=== PATIENT | female | born 1975 | race Caucasian/White ===

== ENCOUNTER 2018-10-25 13:16 | Emergency (ER) | payer BC ==
[2018-10-25] MEDS ORDERED: Sulfameth/Trimethoprim DS 800-160mg TAB ONE (13:57)
== END 2018-10-25 14:03 | disposition home or self-care (01) ==
LOC: NAV ERS 13:16
DX: L02.211 Cutaneous abscess of abdominal wall (principal); Z71.6 Tobacco abuse counseling; E03.9 Hypothyroidism, unspecified; F17.210 Nicotine dependence, cigarettes, uncomplicated; Z79.899 Other long term (current) drug therapy
CPT/HCPCS: 99406

== ENCOUNTER 2019-03-03 13:06 | Emergency (ER) | payer BC ==
[2019-03-03] MEDS ORDERED: Ketorolac Tromethamine 60 MG/2 ML VIAL ONE (13:42)
== END 2019-03-03 14:05 | disposition home or self-care (01) ==
LOC: NAV ERS 13:06
DX: M54.2 Cervicalgia (principal); E03.9 Hypothyroidism, unspecified; F17.210 Nicotine dependence, cigarettes, uncomplicated; Z79.899 Other long term (current) drug therapy
CPT/HCPCS: 96372; 99283; J1885

== ENCOUNTER 2019-04-01 18:14 | Emergency (ER) | payer BC ==
--- NOTE | 2019-04-01 19:37 | RAD ---
RIGHT MIDDLE FINGER THREE VIEWS: 04/01/19 HISTORY: Right finger injury. FINDINGS: There is joint space narrowing, osteophytosis and subchondral sclerosis at the distal interphalangeal joint. No acute fracture, dislocation, or aggressive osseous erosions. IMPRESSION: Osteoarthritis distal interphalangeal joint. No acute osseous abnormalities are demonstrated. POS: [facility]
== END 2019-04-01 19:08 | disposition home or self-care (01) ==
LOC: NAV ERS 18:14
DX: S63.632A Sprain of interphalangeal joint of right middle finger, initial encounter (principal); E03.9 Hypothyroidism, unspecified; F17.210 Nicotine dependence, cigarettes, uncomplicated; Z79.899 Other long term (current) drug therapy; X58.XXXA Exposure to other specified factors, initial encounter

== ENCOUNTER 2019-05-30 23:13 | Emergency (ER) | payer BC ==
[2019-05-30] MEDS ORDERED: Ketorolac Tromethamine 30 MG/ML VIAL ONE (23:55)
--- NOTE | 2019-05-30 23:59 | RAD ---
5 views of the cervical spine: 05/30/2019 COMPARISON: None HISTORY: Pain FINDINGS: There is anterior discectomy and fusion hardware at the C6-7 level. No evidence for hardwar e failure. No anterolisthesis or retrolisthesis. Frontal imaging demonstrates mid cervical spine uncovertebral osteophyte formation, left greater than right. Open-mouth odontoid view appears unremarkable. IMPRESSION: Postoperative and degenerative change. No acute osseous abnormality.
== END 2019-05-31 00:17 | disposition home or self-care (01) ==
LOC: NAV ERS 23:13
DX: S13.9XXA Sprain of joints and ligaments of unspecified parts of neck, initial encounter (principal); F17.210 Nicotine dependence, cigarettes, uncomplicated; E03.9 Hypothyroidism, unspecified; Z79.899 Other long term (current) drug therapy; V89.2XXA Person injured in unspecified motor-vehicle accident, traffic, initial encounter
CPT/HCPCS: 72040; 96372; J1885

== ENCOUNTER → 2019-11-23 | Emergency (ER) | payer BC ==
--- NOTE | 2019-11-23 18:19 | RAD ---
LEFT FINGER THREE VIEW: 11/23/19 HISTORY: Thumb pain. COMPARISON: None. FINDINGS: There is mild interphalangeal joint space narrowing. No acute fracture or malalignment. Moderate dege nerative disease of the thumb carpometacarpal joint. IMPRESSION: Degenerative changes. No acute osseous abnormality. POS: HOME
== END ==
LOC: NAV ERS 17:21
DX: M19.042 Primary osteoarthritis, left hand (principal); E03.9 Hypothyroidism, unspecified; F17.210 Nicotine dependence, cigarettes, uncomplicated; Z79.899 Other long term (current) drug therapy
CPT/HCPCS: 29125

== ENCOUNTER 2020-04-04 13:22 | Emergency (ER) | payer BC ==
[2020-04-04] MEDS ORDERED: Cyclobenzaprine 10 MG TAB ONE ×2 (13:53→13:56)
== END 2020-04-04 14:04 | disposition home or self-care (01) ==
LOC: NAV ERS 13:22
DX: M43.6 Torticollis (principal); F17.210 Nicotine dependence, cigarettes, uncomplicated; E03.9 Hypothyroidism, unspecified; Z79.899 Other long term (current) drug therapy
CPT/HCPCS: 99283

== ENCOUNTER 2020-06-01 03:38 | Emergency (ER) | payer BC ==
[2020-06-01] MEDS ORDERED: Acetaminophen/Codeine 30-300mg Tablet ONE (04:00)
--- NOTE | 2020-06-01 08:08 | RAD ---
XR Knee Lt 4 View STANDARD HISTORY: Injury, left knee pain FINDINGS: No fracture or dislocation is identified. No joint effusion is seen.
== END 2020-06-01 04:32 | disposition home or self-care (01) ==
LOC: NAV ERS 03:38
DX: S80.12XA Contusion of left lower leg, initial encounter (principal); E78.5 Hyperlipidemia, unspecified; E78.00 Pure hypercholesterolemia, unspecified; E03.9 Hypothyroidism, unspecified; F17.210 Nicotine dependence, cigarettes, uncomplicated; Z79.899 Other long term (current) drug therapy; W21.05XA Struck by basketball, initial encounter

== ENCOUNTER 2021-06-03 21:48 | Emergency (ER) | payer BC ==
[2021-06-03] MEDS ORDERED: Promethazine HCl 25 MG/ML VIAL ONE (22:37)
[2021-06-03] MEDS ORDERED: Ketorolac Tromethamine 30 MG/ML VIAL ONE (22:37)
[2021-06-03] MEDS ORDERED: Sodium Chloride 0.9% 1,000 ML ONE (22:37)
[2021-06-03 22:40] LABS: #Basophils 0.1 thou/uL (0.0-0.2); #Eosinphils 0.5 thou/uL (0.0-0.7); #Monocytes 0.5 thou/uL (0.11-0.59); #Neutrophils 4.6 thou/uL (1.40-6.50); %Basophils 0.9 % (0.0-1.0); %Lymphocytes 46.1 % (21.0-51.0); %Monocytes 4.8 % (0.0-10.0); %Neutrophils 43.2 % (42.0-75.0); Hemoglobin 14.4 g/dL (12.0-16.0); Mean Corpuscular HGB CONC 33.6 g/dL (32.0-36.0); Mean Corpuscular Hemoglobin 31.9 pg (27.0-31.0); Mean Platelet Volume 7.5 fL (7.4-10.4); Platelet Count 313 thou/uL (130-400); RBC Distribution Width 12.1 % (11.5-14.5); White Blood Cell (WBC) Count 10.7 thou/uL (4.8-10.8)
[2021-06-03 22:49] LABS: ALT (SGPT) 30 U/L (8-55); AST (SGOT) 49 U/L (5-34); Albumin 4.3 g/dL (3.5-5.0); Alkaline Phosphatase 101 U/L (40-110); Anion Gap 15 mmol/L (10-20); BUN (Urea Nitrogen) 11 mg/dL (7.0-18.7); Bilirubin, Total 0.4 mg/dL (0.2-1.2); Calc. Creatinine Clearance 0 mL/min (70-130); Calcium 10.4 mg/dL (7.8-10.44); Carbon Dioxide 27 mmol/L (22-29); Chloride 99 mmol/L (98-107); Globulin 3.6 g/dL (2.4-3.5); Glucose 110 mg/dL (70-105); Potassium 3.8 mmol/L (3.5-5.1); Protein, Total 7.9 g/dL (6.0-8.3); Sodium 137 mmol/L (136-145)
== END 2021-06-03 23:35 | disposition home or self-care (01) ==
LOC: NAV ERS 21:48
DX: R07.89 Other chest pain (principal); R51.9 Headache, unspecified; E78.00 Pure hypercholesterolemia, unspecified; E78.5 Hyperlipidemia, unspecified; E03.9 Hypothyroidism, unspecified; F17.290 Nicotine dependence, other tobacco product, uncomplicated; Z79.899 Other long term (current) drug therapy
CPT/HCPCS: 71045; 80053; 84484; 85025; 93005; 94760; 96365; 96375; J1885; J2550; J7050

== ENCOUNTER 2022-03-30 21:50 | Emergency (ER) | payer BC ==
[2022-03-30] MEDS ORDERED: Acetaminophen 500 MG TAB ONE (22:39)
== END 2022-03-30 23:16 | disposition home or self-care (01) ==
LOC: NAV ERS 21:50
DX: S90.32XA Contusion of left foot, initial encounter (principal); E78.5 Hyperlipidemia, unspecified; E78.00 Pure hypercholesterolemia, unspecified; E03.9 Hypothyroidism, unspecified; F17.200 Nicotine dependence, unspecified, uncomplicated; W20.8XXA Other cause of strike by thrown, projected or falling object, initial encounter

== ENCOUNTER 2023-12-02 20:39 | Emergency (ER) | payer BC | END 2023-12-02 21:42 | disposition home or self-care (01) | LOC: NAV ERS 20:39 | DX: N76.4 Abscess of vulva (principal); E03.9 Hypothyroidism, unspecified; F17.290 Nicotine dependence, other tobacco product, uncomplicated; Z79.899 Other long term (current) drug therapy | CPT/HCPCS: 56405; 87070; 87077; 87205 ==